=== PATIENT | female | born 1995 | race Caucasian/White ===

== ENCOUNTER 2018-02-09 01:48 | Emergency (ER) | payer BC, OTHER ==
[2018-02-09 02:24] VITALS: BP 126/99; PULSE 82; TEMP 97.8; BMI 24.7
[2018-02-09] MEDS ORDERED: IBUPROFEN 600 MG TABLET (FP) PO ONE ×2 (02:27→02:38)
[2018-02-09] MEDS ORDERED: ACETAMINOPHEN 325 MG TABLET (FP) PO ONE (02:27)
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
[2018-02-09] MEDS ORDERED: ACETAMINOPHEN 325 MG TABLET (FP) ONE (02:38)
== END 2018-02-09 02:20 | disposition home or self-care (01) ==
LOC: JER 01:48
DX: M51.26 Other intervertebral disc displacement, lumbar region (principal); M50.20 Other cervical disc displacement, unspecified cervical region
CPT/HCPCS: 99281-25

== ENCOUNTER 2019-06-10 22:06 | Emergency (ER) | payer BC, OTHER ==
[2019-06-10 22:17] VITALS: BP 145/96; PULSE 95; TEMP 97.9; BMI 26.6
[2019-06-10 22:42] LABS: EPI CELLS 17.9 /HPF (0-5/HPF); HYALINE CASTS 9 /lpf (0-8); PH,URINE 7.5 (5.0-8.0); URINE APPEARANCE TURBID; URINE BILIRUBIN NEGATIVE (NEGATIVE); URINE COLOR YELLOW; URINE GLUCOSE (UA) NEGATIVE (NEGATIVE); URINE KETONE NEGATIVE (NEGATIVE); URINE LEUK ESTERASE 2+ (NEGATIVE); URINE NITRITE NEGATIVE (NEGATIVE); URINE PROTEIN TRACE (NEGATIVE); URINE RBC 63 /hpf (0-4); URINE UROBILINOGEN 0.2 mg/dL (0.2-1.0); URINE WBC 161 /hpf (0-5)
--- NOTE | 2019-06-10 23:46 | PDOC ---
History of Present Illness - General Chief Complaint: Pain, Acute Stated Complaint: RT SIDE ABD PAIN History Source: Patient Exam Limitations: No Limitations - History of Present Illness Initial Comments: 06/10/19 23:39 23 yo F with previous UTI infections in the past (most recent abx use >1 year ago) presents to the emergency department with burning urination for 2 days. Per the patient, she states she has is having concurrent right flank pain with nausea. Denies the following: vaginal bleeding, lower abdominal pain, fever, chills, chest pain, SOB, ears/nose/throat pain, headache, and back pain. 06/10/19 23:46 Past History - Past Medical History Allergies/Adverse Reactions: Allergies Allergy/AdvReac Type Severity Reaction Status Date / Time No Known Allergies Allergy Verified 06/10/19 22:18 Home Medications: Ambulatory Orders Cephalexin Monohydrate [Keflex -] 500 mg PO Q6H #40 capsule 06/11/19 - Psycho Social/Smoking Cessation Hx Smoking History: Current every day smoker Have you smoked in the past 12 months: No Number of Cigarettes Smoked Daily: 10 Information on smoking cessation initiated: No 'Breaking Loose' booklet given: 01/02/16 Hx Alcohol Use: No Drug/Substance Use Hx: No Substance Use Type: None Review of Systems - Review of Systems Able to Perform ROS?: Yes Is the patient limited Bruneian proficient: No Constitutional: No: Chills, Diaphoresis, Fever, Weakness HEENTM: No: Eye Pain, Ear Pain, Nose Pain, Throat Pain, Mouth Pain Respiratory: No: Cough, Shortness of Breath, Hemoptysis Cardiac (ROS): No: Chest Pain, Lightheadedness, Palpitations ABD/GI: No: Constipated, Diarrhea, Nausea, Rectal Bleeding, Vomiting, Abdominal cramping, Tarry Stools : Yes: Dysuria, Frequency, Flank Pain (right side). No: Hematuria, Urgency Musculoskeletal: No: Back Pain, Joint Pain, Neck Pain Integumentary: No: Bruising, Erythema, Rash Neurological: No: Headache, Tingling, Ataxia Psychiatric: No: Change in Appetite Endocrine: No: Unexplained Weight Loss Hematologic/Lymphatic: No: Anemia *Physical Exam - Vital Signs Last Vital Signs Temp Pulse Resp BP Pulse Ox 97.9 F 95 H 18 145/96 96 06/10/19 22:13 06/10/19 22:13 06/10/19 22:13 06/10/19 22:13 06/10/19 22:13 - Physical Exam General Appearance: Yes: Nourished, Appropriately Dressed. No: Apparent Distress, Intoxicated HEENT: positive: EOMI, BELKYS, Normal Voice, Symmetrical, Pharynx Normal, Hearing Grossly Normal. negative: Pale Conjunctivae, Scleral Icterus (R), Scleral Icterus (L), Muffled/Hoarse voice, Pharyngeal Erythema, Tonsillar Exudate, Tonsillar Erythema, Nasal Congestion, Rhinorrhea, Sinus Tenderness, Excessive drooling Neck: positive: Trachea midline, Supple. negative: Tender, Lymphadenopathy (R) , Lymphadenopathy (L), Tender lateral, Tender midline Respiratory/Chest: positive: Lungs Clear, Normal Breath Sounds. negative: Chest Tender, Respiratory Distress, Accessory Muscle Use, Rhonchi, Stridor, Wheezing Cardiovascular: positive: Regular Rhythm, Regular Rate, S1, S2. negative: Systolic Murmur Gastrointestinal/Abdominal: positive: Normal Bowel Sounds, Flat, Soft. negative : Tender Musculoskeletal: positive: Normal Inspection, CVA Tenderness (R). negative: CVA Tenderness (L), Vertebral Tenderness Extremity: positive: Normal Capillary Refill, Normal Inspection, Normal Range of Motion. negative: Tender, Swelling, Calf Tenderness Integumentary: positive: Normal Color, Dry, Warm Neurologic: positive: Fully Oriented, Alert, Normal Mood/Affect ED Treatment Course - ADDITIONAL ORDERS Additional order review: Laboratory Results 06/10/19 06/10/19 22:30 22:30 Urine Color Yellow Urine Appearance Turbid Urine pH 7.5 Ur Specific [place] 1.012 Urine Protein Trace Urine Glucose (UA) Negative Urine Ketones Negative Urine Blood 2+ H Urine Nitrite Negative Urine Bilirubin Negative Urine Urobilinogen 0.2 Ur Leukocyte Esterase 2+ H Urine WBC (Auto) 161 Urine RBC (Auto) 63 Urine Casts (Auto) 9 U Epithel Cells (Auto) 17.9 Urine Bacteria (Auto) 1027.0 Urine HCG, Qual Negative Medical Decision Making - Medical Decision Making 23 yo F with previous UTI infections in the past (most recent abx use >1 year ago) presents to the emergency department with burning urination for 2 days. Per the patient, she states she has is having concurrent right flank pain with nausea. Initial vitals: Initial Vital Signs Temp Pulse Resp BP Pulse Ox 97.9 F 95 H 18 145/96 96 06/10/19 22:13 06/10/19 22:13 06/10/19 22:13 06/10/19 22:13 06/10/19 22:13 Work up: patient presents with dysuria and flank pain, currently afebrile. will obtain an ua. Laboratory Tests 06/10/19 06/10/19 22:30 22:30 Urine Color Yellow Urine Appearance Turbid Urine pH 7.5 Ur Specific [place] 1.012 Urine Protein Trace Urine Glucose (UA) Negative Urine Ketones Negative Urine Blood 2+ H Urine Nitrite Negative Urine Bilirubin Negative Urine Urobilinogen 0.2 Ur Leukocyte Esterase 2+ H Urine WBC (Auto) 161 Urine RBC (Auto) 63 Urine Casts (Auto) 9 U Epithel Cells (Auto) 17.9 Urine Bacteria (Auto) 1027.0 Urine HCG, Qual Negative UA positive for UTI patient to be given keflex prescription incidentally, the patient complained of white discharge consistent with her previous yeast infection; diflucan prescription given Patient to be discharged Discharge - Discharge Information Problems reviewed: Yes Clinical Impression/Diagnosis: UTI (urinary tract infection) Condition: Stable Disposition: HOME - Admission No - Additional Discharge Information Prescriptions: Cephalexin Monohydrate [Keflex -] 500 mg PO Q6H #40 capsule - Follow up/Referral Referrals: [facility] [place], [place] [facility] [place] [Provider Group] - Patient Discharge Instructions Patient Printed Discharge Instructions: DI for Kidney Infection, DI for Urinary Tract Infection (UTI) Additional Instructions: you were seen in the emergency department for the evaluation of your burning urine. Please follow up with your primary medical doctor within 1 week after discharge for follow up care and management. Please take the antibiotics as prescribed. Thank you. - Post Discharge Activity Work/Back to School Note: Back to Work
[2019-06-11] MEDS ORDERED: CEPHALEXIN MONOHYDRATE 500 MG CAPSULE (UD) PO ONE (00:07)
[2019-06-11] MEDS ORDERED: FLUCONAZOLE 150 MG TABLET PO ONE ×2 (00:07→00:14)
--- NOTE | 2019-06-11 00:12 | PDOC ---
Documentation entered by John Benson SCRIBE, acting as scribe for Hanna Valdes MD. Hanna Valdes MD: This documentation has been prepared by the Kelley perez Xhesika, SCRIBE, under my direction and personally reviewed by me in its entirety. I confirm that the documentation accurately reflects all work, treatment, procedures, and medical decision making performed by me. Attending Attestation - Resident Resident Name: Paul Breaux - ED Attending Attestation I have performed the following: I have examined & evaluated the patient, The case was reviewed & discussed with the resident, I agree w/resident's findings & plan, Exceptions are as noted - HPI HPI: 06/10/19 23:52 The patient is a 23 year old female with a significant PMH of recurrent UTI who presents to the emergency department for 2 days of dysuria with R flank pain associated with nausea. The patient denies chest pain, shortness of breath, headache and dizziness. Denies fever, chills, cough, vomiting, diarrhea and constipation. Denies frequency, urgency and hematuria. Allergies: NKDA - Physicial Exam PE: 06/10/19 23:53 GENERAL: Awake, alert, and fully oriented, in no acute distress HEAD: No signs of trauma NECK: Normal ROM, supple, no lymphadenopathy, JVD, or masses LUNGS: Breath sounds equal, clear to auscultation bilaterally. No wheezes, and no crackles HEART: Regular rate and rhythm, normal S1 and S2, no murmurs, rubs or gallops ABDOMEN: + R CVA tenderness. Soft, normoactive bowel sounds. No guarding, no rebound. No masses EXTREMITIES: Normal range of motion, no edema. No clubbing or cyanosis. No cords, erythema, or tenderness NEUROLOGICAL: Cranial nerves II through XII grossly intact. Normal speech, normal gait SKIN: Warm, Dry, normal turgor, no rashes or lesions noted. - Medical Decision Making 06/11/19 00:11 23-year-old female presents because of dysuria and suprapubic pain. She also states she had some mild right flank pain 06/11/19 00:12 UA shows urinary tract infection Negative test Patient will be given antibiotics and discharged home
[2019-06-11] MEDS ORDERED: CEPHALEXIN MONOHYDRATE 500 MG CAPSULE (UD) ONE (00:14)
== END 2019-06-11 00:19 | disposition home or self-care (01) ==
LOC: JER 22:06
DX: N39.0 Urinary tract infection, site not specified (principal); F17.210 Nicotine dependence, cigarettes, uncomplicated; Z87.440 Personal history of urinary (tract) infections
CPT/HCPCS: 81003; 84703; 87086; 87186; 99283-25